=== PATIENT | female | born 1955 | race Two or more races ===

== ENCOUNTER 2018-03-20 07:06 | Day surgery (SDC) | END 2018-03-20 13:22 | disposition home or self-care (01) ==

== ENCOUNTER 2018-04-03 06:07 | Day surgery (SDC) | END 2018-04-03 11:55 | disposition home or self-care (01) ==

== ENCOUNTER 2018-05-06 10:24 | Day surgery (SDC) | payer OTHER ==
[2018-05-06] VITALS (15 sets, daily range): BP systolic 99–159; BP diastolic 55–90; PULSE 86–101; RESP 10–20; Ht 154.9 cm; Wt 61.7 kg
[~2018-05-06] VITALS: Ht 154.9 cm; Wt 61.7 kg
[~2018-05-06 10:24] MED LIST: ASPI-535 PO; ATOR40TA68 PO; BROMFENAC SODIUM 1.7 ML OPH DROP OPER SCH; CYCLOPENTOLATE 2% 2 ML OPH OPER SCH; DEXAMETHASONE 4 MG/ML 5 ML INJ ONE; GLYCOPYRROLATE 0.4 MG INJ ONE; HYDR25TA6 PO; LEVO150T64 PO; LIDOCAINE 3.5% GEL TUBE OPER ONE; MOXIFLOXACIN 0.5% 3 ML OPH OPER SCH; NEOSTIGMINE 3 MG/3 ML SYRINGE ONE; PROPOFOL 200 MG INJ ONE; SEVOFLURANE 15 MIN ONE; TETRACAINE 0.5% 4 ML OPH OPER SCH
[2018-05-06] MEDS ORDERED: FENTAnyl 50 MCG/ML VIAL ONE (11:50)
[2018-05-06] MEDS ORDERED: MIDAZOLAM 1 MG/ML 2 ML INJ ONE (11:50)
--- NOTE | 2018-05-06 12:39 | PREAC ---
Date/Time of Note Date/Time of Note DATE: 05/06/18 TIME: 11:50 Anesthesia Eval and Record Evaluation Time Pre-Procedure Interview DATE: 05/06/18 TIME: 11:50 Age 63 Sex female NPO: 8 hrs Preoperative diagnosis Left Corneral Ulcer Planned procedure Scraping And Biopsy Of Left Cornea Wound Repair Left Eye Past Medical History Past Medical History: Includes Cardio: HTN, Dyslipidemia Endo: Hypothyroid Pulm: Other Neuro: Other Musculoskeletal: Other Renal: Other Hepatic: Other GI: Other Heme: Other Psych: Other Infection(s): Other Recreational drugs: Other : Other Surgery & Anesthesia Issues Hx of difficult intubation, Aspiration risk Meds Anticoagulation: No Beta Dean within 24 hr: No Reason Beta Dean not given: Pt. not on B-Dean Reported Medications Aspirin Ec (Aspir 81) 81 Mg Tablet.dr, 81 MG PO DAILY, #30 TAB 04/03/18 Atorvastatin* (Atorvastatin*) 40 Mg Tablet, 40 MG PO QHS, #30 TAB 04/03/18 Levothyroxine Sodium* (Levoxyl*) 150 Mcg Tablet, 150 MCG PO BEFORE BREAKFAST, #30 TAB 03/20/18 Hydrochlorothiazide* (Hydrochlorothiazide*) 25 Mg Tab, 25 MG PO DAILY, #30 TAB 03/20/18 Current Medications Cyclopentolate HCl (Cyclogyl 2% Oph) 1 drop Q5MIN X 3 OPER Last administered on 05/06/18at 11:18; Admin Dose 1 DROP; Start 05/06/18 at 09:00 Bromfenac Sodium (Bromday) 1 drop Q5 MIN X3 OPER Last administered on 05/06/18at 11:17; Admin Dose 1 DROP; Start 05/06/18 at 09:00 Moxifloxacin HCl (Vigamox) 1 drop Q5MIN X 3 OPER Last administered on 05/06/18at 11:18; Admin Dose 1 DROP; Start 05/06/18 at 09:00 Tetracaine HCl (Tetracaine 0.5% Steri-Unit Elli) 1 drop Q5 MIN X3 OPER Last administered on 05/06/18at 11:19; Admin Dose 1 DROP; Start 05/06/18 at 09:00 Meds reviewed: Yes Allergies Coded Allergies: No Known Allergy (Unverified , 05/06/18) Allergies Reviewed: Yes Labs/Studies Labs Reviewed: Reviewed by anesthesiologist test: N/A Studies: ECG Pre-procedure Exam Last vitals Vital Signs Date Temp Pulse Resp B/P (MAP) Pulse Ox O2 O2 Flow FiO2 Time Delivery Rate 05/06/18 98.0 86 18 159/90 99 Room Air 10:52 (113) Airway: Adequate mouth opening Mallampati: Mallampati II Teeth: Normal Lung: Normal Heart: Normal Anticipated Difficutly with IV: Anticipate Difficult IV Access ASA Physical Status ASA physical status: 2 Emergency: None Planned Anesthetic General/MAC: ETT Planned Pain Management Parenteral pain med, Local by surgeon Pre-operative Attestations Prior to commencing anesthesia and surgery, the patient was re-evaluated, there was verification of: *The patient's identity *The results of appropriate recent lab work and preoperative vital signs *The above evaluation not changing prior to induction *Anesthetic plan, risk benefits, alternative and complications discussed with patient/family; questions answered; patient/family understands, accepts and wishes to proceed. VLADIMIR SKELTON MD May 06, 2018 12:01
--- NOTE | 2018-05-06 12:44 | PREAC ---
Date/Time of Note Date/Time of Note DATE: 05/06/18 TIME: 12:39 Anesthesia Eval and Record Evaluation Time Pre-Procedure Interview DATE: 05/06/18 TIME: 12:39 Age 63 Sex female NPO: 8 hrs Preoperative diagnosis Corneal ulcer left eye Planned procedure SC RAPING AND bIOPSY lEFT cORNiA wOUND REPAIR aND SUTURE REPLACEMENT lEFT eYE Past Medical History Past Medical History: Includes Cardio: HTN, Dyslipidemia Endo: Hypothyroid Pulm: Other Neuro: Other Musculoskeletal: Other Renal: Other Hepatic: Other GI: Other Heme: Other Psych: Other Infection(s): Other Recreational drugs: Other : Other Surgery & Anesthesia Issues Aspiration risk Meds Anticoagulation: No Beta Dean within 24 hr: No Reason Beta Dean not given: Pt. not on B-Dean Reported Medications Aspirin Ec (Aspir 81) 81 Mg Tablet.dr, 81 MG PO DAILY, #30 TAB 04/03/18 Atorvastatin* (Atorvastatin*) 40 Mg Tablet, 40 MG PO QHS, #30 TAB 04/03/18 Levothyroxine Sodium* (Levoxyl*) 150 Mcg Tablet, 150 MCG PO BEFORE BREAKFAST, #30 TAB 03/20/18 Hydrochlorothiazide* (Hydrochlorothiazide*) 25 Mg Tab, 25 MG PO DAILY, #30 TAB 03/20/18 Current Medications Cyclopentolate HCl (Cyclogyl 2% Oph) 1 drop Q5MIN X 3 OPER Last administered on 05/06/18at 11:18; Admin Dose 1 DROP; Start 05/06/18 at 09:00 Bromfenac Sodium (Bromday) 1 drop Q5 MIN X3 OPER Last administered on 05/06/18at 11:17; Admin Dose 1 DROP; Start 05/06/18 at 09:00 Moxifloxacin HCl (Vigamox) 1 drop Q5MIN X 3 OPER Last administered on 05/06/18at 11:18; Admin Dose 1 DROP; Start 05/06/18 at 09:00 Tetracaine HCl (Tetracaine 0.5% Steri-Unit Elli) 1 drop Q5 MIN X3 OPER Last administered on 05/06/18at 11:19; Admin Dose 1 DROP; Start 05/06/18 at 09:00 Meds reviewed: Yes Allergies Coded Allergies: No Known Allergy (Unverified , 05/06/18) Allergies Reviewed: Yes Labs/Studies Labs Reviewed: Reviewed by anesthesiologist Laboratory Tests 05/06/18 11:35 test: N/A Studies: ECG, CXR Pre-procedure Exam Last vitals Vital Signs Date Temp Pulse Resp B/P (MAP) Pulse Ox O2 O2 Flow FiO2 Time Delivery Rate 05/06/18 98.0 86 18 159/90 99 Room Air 10:52 (113) Airway: Adequate mouth opening Mallampati: Mallampati II Teeth: Normal Lung: Normal Heart: Normal Anticipated Difficutly with IV: Anticipate Difficult IV Access ASA Physical Status ASA physical status: 2 Emergency: None Planned Anesthetic General/MAC: ETT Neuraxial: Other Nerve block: Other Planned Pain Management Parenteral pain med, Local by surgeon Pre-operative Attestations Prior to commencing anesthesia and surgery, the patient was re-evaluated, there was verification of: *The patient's identity *The results of appropriate recent lab work and preoperative vital signs *The above evaluation not changing prior to induction *Anesthetic plan, risk benefits, alternative and complications discussed with patient/family; questions answered; patient/family understands, accepts and wishes to proceed. VLADIMIR SKELTON MD May 06, 2018 12:44
[2018-05-06] MEDS ORDERED: SUCCINYLCHOLINE CHLORIDE 100 MG/5 ML SYG IV ONE (13:06)
[2018-05-06] MEDS ORDERED: CEFAZOLIN 1 GM INJ ONE (13:06)
[2018-05-06] MEDS ORDERED: ONDANSETRON 4 MG INJ ONE (13:06)
[2018-05-06] MEDS ORDERED: TOBRAMYCIN 0.3% 3.5 GM OPH OINT LEFT EYE ONE (13:54)
--- NOTE | 2018-05-06 14:03 | NUR ---
PACU: Received patient in pacu via [facility] @ semi mosher position breathing with ease, left eye dressing dry & intact , denies pain at this time, phone son & given him update, will continue to monitor.
--- NOTE | 2018-05-06 14:09 | PAC ---
Date/Time of Note Date/Time of Note DATE: 05/06/18 TIME: 14:09 Post-Anesthesia Notes Post-Anesthesia Note Last documented vital signs Vital Signs Date Temp Pulse Resp B/P (MAP) Pulse Ox O2 O2 Flow FiO2 Time Delivery Rate 05/06/18 98.0 86 18 159/90 99 Room Air 10:52 (113) Activity: WNL Respiratory function: WNL Cardiovascular function: WNL Mental status: Baseline Pain reasonably controlled: Yes Hydration appropriate: Yes Nausea/Vomiting absent: No VLADIMIR SKELTON MD May 06, 2018 14:09
[2018-05-06] MEDS ORDERED: EPHEDrine SULFATE 50 MG/5 ML SYG IV PRN (14:30)
[2018-05-06] MEDS ORDERED: DIPHENHYDRAMINE 50 MG INJ IV PRN (14:30)
[2018-05-06] MEDS ORDERED: ONDANSETRON 4 MG INJ IV PRN (14:30)
[2018-05-06] MEDS ORDERED: FENTAnyl 50 MCG/ML VIAL IV PRN ×3 (14:30)
[2018-05-06] MEDS ORDERED: LABETALOL HCL 20MG INJ IV PRN (14:30)
[2018-05-06] MEDS ORDERED: LEVALBUTEROL (NEB) 0.63 MG/3 ML AMP HHN PRN (14:30)
[2018-05-06] MEDS ORDERED: hydrALAzine 20 MG INJ IV PRN (14:30)
[2018-05-06] MEDS ORDERED: HYDROmorphONE 1 MG/5 ML IV SYRINGE IV PRN ×3 (14:30)
[2018-05-06] MEDS ORDERED: ALBUTEROL 0.083% (NEB) 2.5 MG/3 ML AMP HHN PRN (14:30)
[2018-05-06] MEDS ORDERED: MEPERIDINE 25 MG INJ IV PRN (14:30)
--- NOTE | 2018-05-06 15:12 | NUR ---
PACU: [facility] @ semi mosher position breathing with ease, left eye dressing dry & intact , denies pain at this time, report given SUREKHA [facility] Pac[facility] time: 1403 -1512 Anes. time: 1251 -1403
[2018-05-06] MEDS ORDERED: ROCURONIUM 50 MG INJ ONE (15:28)
--- NOTE | 2018-05-06 16:13 | NUR ---
SDS: PATIENT D/C HOME IN STABLE CONDITION, VS WITHIN NORMAL LIMITS, NO PAIN OR DISCOMFORT REPORTED. ALL D/C INSTRUCTIONS PROVIDED TO PATIENT AND FAMILY. THEY UNDERSTAND PROVIDED INFORMATION AND VERBALIZED READINESS TO GO HOME.
--- NOTE | 2018-05-06 21:04 | OPR ---
DATE OF OPERATION: 05/06/2018 SURGEON: Nikky Aguirre MD ANESTESIOLOGIST: PREOPERATIVE DIAGNOSIS: Marginal corneal ulcer, Lt eye. POSTOPERATIVE DIAGNOSIS: Marginal corneal ulcer, Lt. eye. ANESTESIA: GENERAL PROCEDURE PLANNED: 1. Scraping of the cornea and possible biopsy of the cornea, Lt. eye. 2. Revision of the wound and replacement of the suture, Lt. eye. CONSENT: The patient and her son were explained all possible outcomes of the procedure and possible complications of the procedure. The patient developed marginal ulcer in the area of the surgical wound. The patient understood that debridement of the wound may not help, possible complication may include but not limited to: progression of the corneal margin ulcer or infection inside the eye ( endophthalmitis), loss of vision, loss of the eye as an organ. The patient and her family understood and consent was signed and can be found in her chart. DESCRIPTION OF PROCEDURE: The patient brought to the operating room in stable condition and placed on operating table in supine position and her left eye prepped and she was given general anesthesia. The patient preferred to have general anesthesia. The swab was used was used for pathology lab for fungal culture and bacteriological culture. Then the eye was prepped with Betadine for the procedure. The wound suture was removed and area of corneal wound was scraped with the Coffey knife and some balanced salt solution was used to irrigate the anterior chamber. Then 6 interrupted suture of 2-0 nylon used to replace the previous suture to close the wound. Some additional Betadine solution was used few times to sterilize the cornea and conjunctiva and Tobrex ointment was instilled. In addition, IV Keflex 2 grams was given to the patient. Then a patch was placed over closed eyelid. The patient transferred to recovery room in stable condition. Dictated By: NIKKY MCKAY/LINDSAY Conf#: [id number] DID#: [id number]
== END 2018-05-06 16:16 | disposition home or self-care (01) ==
LOC: SDS 10:24
PROVIDERS: ATTEND Ophthalmology
DX: H16.042 Marginal corneal ulcer, left eye (principal); I10 Essential (primary) hypertension; E78.5 Hyperlipidemia, unspecified; E11.9 Type 2 diabetes mellitus without complications
CPT/HCPCS: 65435; 80048; 85025; 85610; 85730; 87070; 87102; J0690; J1100; J2175; J2250; J2405; J2710; J3010; Z7512; Z7610; J1170